=== PATIENT | female | born 1965 | race Caucasian/White ===

== ENCOUNTER → 2024-02-06 11:34 | Outpatient (REF) | payer OTHER, SELFPAY | LOC: WDC 11:34 | PROVIDERS: ATTENDING PHYSICIAN Physician Assistant | DX: Z12.31 Encounter for screening mammogram for malignant neoplasm of breast (principal) | CPT/HCPCS: 77063; 77067 ==

== ENCOUNTER → 2025-02-07 11:09 | Outpatient (REF) | payer OTHER, SELFPAY | LOC: WDC 11:09 | PROVIDERS: ATTENDING PHYSICIAN Physician Assistant | DX: Z12.31 Encounter for screening mammogram for malignant neoplasm of breast (principal) | CPT/HCPCS: 77063; 77067 ==